=== PATIENT | male | born 1980 | race Caucasian/White ===

== ENCOUNTER → 2017-07-24 | Outpatient (CLI) | payer OTHER, MEDICAID ==
[~2017-07-24] MED LIST: HYDROCHLOROTHIAZIDE; METH4TAB PO; TRAZADONE
--- NOTE | 2017-07-24 16:26 | Diagnostic Imaging Report ---
PROCEDURE: US Abdomen, limited. TECHNIQUE: Multiple realtime grayscale images were obtained over the abdomen in various projections. INDICATION: Left inguinal lump. COMPARISON: None available. FINDINGS: In the area of palpable concern, there appears to be a tubular blind-ending structure that has a bowed configuration. Without Valsalva maneuver, this tubular structure further herniates into the inguinal canal. There are a few benign-appearing lymph nodes in the left inguinal region as well. IMPRESSION: Inguinal hernia appears to contain a loop of small bowel. Consider CT pelvis without contrast for further assessment. Dictated by: Dictated on workstation # [id number]
== END ==
LOC: RAD 14:11
DX: K40.90 Unilateral inguinal hernia, without obstruction or gangrene, not specified as recurrent (principal)
CPT/HCPCS: 76705

== ENCOUNTER → 2017-07-29 | Day surgery (SDC) | payer OTHER, MEDICAID ==
[~2017-07-29] VITALS: Ht 170.2 cm; Wt 69.9 kg
[~2017-07-29] MED LIST changes: +HYDROmorphone (DILAUDID) 2 MG/ML VIAL ONE; +KETO10TA PO; +KETOROLAC 30 MG/ML VIAL IVP ONE; +LACTATED RINGERS 1,000 ML IV ONE; +LIDOCAINE/EPI 1%-1:200,000 (XYLOCAINE) 30 ML VIAL ONE; +MIDAZOLAM 2 MG/2 ML (VERSED) VIAL ONE; +ONDANSETRON 4 MG/2 ML (SDV) Z0FRAN IVP PRN; +ONDANSETRON 4 MG/2 ML (SDV) Z0FRAN ONE; +SEVOFLURANE (ULTANE) 15 ML INHAL SOLN ONE; +ceFAZolin 2 GM/50 ML NS 50 ML ONE; +fentaNYL INJECTION 100 MCG/2 ML AMP ONE; +morphine INJ 10 MG/ML 1ML (SYR OR VIAL) IVP ONE; +morphine INJ 10 MG/ML 1ML (SYR OR VIAL) ONE; +proPOfol 200 MG/20 ML (DIPRIVAN) VIAL IV ONE
--- OUTSIDE RECORDS SUMMARY | 2017-07-29 10:58 | XMS REPORT | Continuity of Care Document ---
Author Author [employer] Organization [facility] Address Unknown Phone Unavailable Care Team Providers Care Wire Mesh Filter Fabricator Name Role Phone [employer] Unavailable Unavailable Problems Medications Allergies, Adverse Reactions, Alerts Immunizations Results Order Name Results Value Reference Range Date Interpretation Comments Source Parent NGS Parent NGS Genomics Case Created 08/15 NA This order is for collection purposes only. The Genomics case will be created seperately.
[facility] zVirgilio Gen Mahnaz Monge 08/14/2016 [facility] Final Report Final Report Blood [id number] DNA isolation/storage for future study. [id number] Lab use only. Electronically signed by: Luz Maria Varela 08/28/2016 11:34</br> 08/14/2016 Electronically signed by: Luz Maria Varela 08/28/2016 11:34 [facility] Vital Signs Encounters Location Location Details Encounter Type Encounter Number Reason For Visit Attending Provider ADM Date DC Date Status Source [facility] REF [id number] Le Edwards 08/14/2016 08/14/2016 Active [facility] Procedures Plan of Care Social History Assessment and Plan Family History Value Date Source Advance Directives Order Name Results Value Date Source
--- OUTSIDE RECORDS SUMMARY | 2017-07-29 10:58 | XMS REPORT ---
Author Author CHARANJIT MYERS Organization [facility] Address [address] [place] [address] Care Team Providers Care Clay Plant Treater Name Role Phone CHARANJIT MYERS Unavailable PROBLEMS Type Condition ICD9-CM Code ZCD40-DN Code Onset Dates Condition Status SNOMED Code Problem Mood disorder F39 Active 52750475 Problem Brown recluse spider bite, accidental or unintentional, subsequent encounter T63.331D Active 73132566 Assessment Mood disorder F39 Sep, Active 18306578 Problem Essential hypertension I10 Active 40900416 Problem Insomnia, unspecified type G47.00 Active 952789115 ALLERGIES Substance Reaction Event Type Date Status Vicodin nausea, itching Drug Allergy Sep, Active Valium nausea, itching Drug Allergy Sep, Active SOCIAL HISTORY No smoking Hx information available PLAN OF CARE VITAL SIGNS Height 67 in 2016-10-14 Weight 157.1 lbs 2016-10-14 Heart Rate 72 bpm 2016-10-14 Respiratory Rate 16 2016-10-14 BMI 24.60 kg/m2 2016-10-14 Blood pressure systolic 110 mmHg 2016-10-14 Blood pressure diastolic 70 mmHg 2016-10-14 MEDICATIONS Medication Instructions Dosage Frequency Start Date End Date Duration Status Trazodone HCl 50 mg Orally Once a day 1 tab qhs titrate to 3 tab/ noc 24h Apr, Active Lamictal 25 MG Orally Once a day 1 tab qa m x2 wk then 2 tab qam 24h Active RESULTS No Results PROCEDURES Procedure Date Ordered Related Diagnosis Body Site Office Visit, Est Pt., Level 3 Oct 14, 2016 IMMUNIZATIONS No Known Immunizations
[2017-07-29 11:20] VITALS: BP 126/90
[2017-07-29] MEDS: LACTATED RINGERS 1,000 ML IV PRN ×2 (11:59→13:19)
--- NOTE | 2017-07-29 13:04 | Progress Note-Post Operative ---
Post-Operative Progess Note Surgeon (s)/Alignment Specialist (s) Surgeon LESLIE THOMPSON DO Alignment Specialist: Kimberley Pre-Operative Diagnosis LEFT INGUINAL HERNIA Post-Operative Diagnosis Incarcerated Indirect Inguinal Hernia, with Direct component Procedure & Operative Findings Date of Procedure 07/29/17 Procedure Performed/Findings LIH with mesh Anesthesia Type GET Estimated Blood Loss Estimated blood loss (mL): scant Specimens/Packing Specimens Removed hernia sac LESLIE THOMPSON DO Jul 29, 2017 13:04
--- NOTE | 2017-07-29 13:10 | Discharge Inst-Surgical ---
Discharge Inst-Surgical Depart Medication/Instructions New, Converted or Re-Newed RX: Transmitted to Pharmacy Patient Instructions Follow up Appt: Make appointment for 2 weeks. [phone] Instructions: No lifting greater than 30 pounds. No strenuous activity. May shower in 24 hours, no tub bath or soaking. Use incentive spirometer at home as directed. No Smoking Skin/Wound Care: May remove bandages in am. You need to leave the Dermabond on it will fall off on its own. Symptoms to Report: Appetite Changes, Extremity Discoloration, Numbness/Tingling, Swelling Increased , Bleeding Excessive, Eyesight Changes, Pain Increased, Urine Color Change, Constipation(Persistent), Fever over 101 degree F, Pain/Pressure in chest, Urinating Difficulty, Cough Up/Vomit Blood, Heart Beat Irreg/Pounding, Pain/ Pressure in jaw, Vaginal Bleeding Increase, Cramps in feet or legs, Lightheadedness, Pain/Pressure in shoulder, Diarrhea(Persistent), Memory Changes Suddenly, Questions/Concerns, Weight gain consecutive days, Dizziness/ Fainting, Nausea/Vomiting, Shortness of Breath, Weight gain over 2 pounds If questions or concerns contact your physician Or seek help at emergency department. Activity Activity as Tolerated: Yes Activity Instructions: Avoid Pulling & Pushing, Avoid Stress to Incision Driving Instructions: No Driving/Refer to Dr. Bartlett Discharge Diet: No Restrictions Diet After 24 Hours: Clear Liquid if Nauseous If Any Problems/Questions/Issu: Contact Your Physician, Go to Emergency Room Skin/Wound Care Infection Signs and Symptoms: Increased Redness, Foul Odor of Wound, Increased Drainage, Skin Itchy or Has a Rash, Increased Swelling, Temperature Above 101 F Bathing Instructions: Shower Stitches/[place]/Dermabond Dis: Dermabond Ice Pack: Ice On and Off Site LESLIE THOMPSON DO Jul 29, 2017 13:10
[2017-07-29] MEDS: morphine INJ 10 MG/ML 1ML (SYR OR VIAL) IVP PRN ×2 (13:35→13:44)
[2017-07-29 14:10] VITALS: BP 139/88
[2017-07-29 14:40] VITALS: BP 121/93
[2017-07-29 15:10] VITALS: BP 131/83
[2017-07-29 16:00] VITALS: BP 131/83
--- NOTE | 2017-07-30 09:20 | OPERATIVE REPORT ---
DATE OF SERVICE: 07/30/2017 PREOPERATIVE DIAGNOSIS: Incarcerated left inguinal hernia. POSTOPERATIVE DIAGNOSIS: Incarcerated left inguinal hernia indirect, as well as with a direct component. PROCEDURE: Left inguinal herniorrhaphy and mesh placement. SURGEON: Dr. Peter. NPS: Dr. Chu. ANESTHESIA: General endotracheal tube. SPECIMEN: Hernia sac. BLOOD LOSS: Scant. FLUIDS: Per anesthesia. POSTOPERATIVE CONDITION: Stable. INDICATION FOR PROCEDURE: The patient is a 37-year-old male who has had increasing bulging and pain. He states that the bulge does not really go back in, and when I did an ultrasound as an outpatient it showed a loop of bowel in this area. FINDINGS: The patient had an incarcerated indirect inguinal hernia, as well as a direct floor component. PROCEDURE NOTE: After informed consent was obtained, the patient was brought to the operating room, placed on the operating table in supine position. He was sterilely prepped and draped in normal fashion. Local lidocaine used for an ilioinguinal nerve block, as well as pubic tubercle block and then infiltrated left inguinal region with local and then made an incision with #15 blade, carried down through skin and subcutaneous tissue, then deepened down subcutaneous tissue with Bovie electrocautery down to the fascia. External oblique fascia was then infiltrated with local and incised to the external inguinal ring with Bovie electrocautery, grasped the 2 sides with hemostats and then dissected up under the external oblique fascia to create a space, then able to get under the cord and cord structures at the pubic tubercle, placed a [place] drain in the inferolateral direction dissecting superiorly and medially looking for the indirect hernia sac and found one, able to carefully peel this off the cord and cord structures, opened this up and pushed the intestine back in. This was actually a pretty big sac so elected to do a pursestring of 2-0 Vicryl. Once this was tied off I then cut the rest of the sac off and watched the small stump retract back into the abdomen. Also noted a direct floor component. I elected to close this floor of the inguinal canal with another 2-0 Vicryl [id number] suture. Closed this nicely and then elected to place a left-sided Parietex mesh. I trimmed to fit into the inguinal canal, sutured once to the pubic tubercle and then placed the rest of the mesh up under the actually fascia encircling the cord and cord structures through the precut hole thereby recreating the internal inguinal ring. Copiously irrigated with normal saline and then elected to close the external fascia with 3-0 Vicryl running suture, thereby recreating the external inguinal ring. I then closed Micah's fascia 3-0 Vicryl, 2 interrupted sutures and then closed the skin with 4-0 undyed Monocryl in subcuticular fashion. Area was cleaned and dried. Dermabond was used, as well as a dressing placed and the patient then transferred to recovery room in stable condition. Sponge, instrument and needle counts correct at the end of the case. Dr. Chu assisted in this case, holding anatomy, cutting tissue, as well as helping to close the incision. Job ID: [id number] DocumentID: [id number] Dictated Date: 07/30/2017 09:06:24 Business Operations Consultant Date: 07/30/2017 09:19:29 Dictated By: LESLIE PETER DO
== END | disposition home or self-care (01) ==
LOC: SDC 10:52
PROVIDERS: ATTEND Surgery
DX: K40.30 Unilateral inguinal hernia, with obstruction, without gangrene, not specified as recurrent (principal); F17.210 Nicotine dependence, cigarettes, uncomplicated; Z11.2 Encounter for screening for other bacterial diseases
CPT/HCPCS: 87081; 88302; 94664